=== PATIENT | female | born 1965 | race Caucasian/White ===

== ENCOUNTER 2019-12-11 20:12 | Emergency (ER) | payer OTHER ==
[~2019-12-11] VITALS: Ht 144.8 cm; Wt 55.8 kg
[2019-12-11 20:19] VITALS: Ht 144.8 cm; Wt 55.8 kg
[2019-12-11 22:04] VITALS: BP 150/60
== END 2019-12-11 22:05 | disposition home or self-care (01) ==
LOC: ED 20:12
DX: S90.111A Contusion of right great toe without damage to nail, initial encounter (principal); J45.909 Unspecified asthma, uncomplicated; B00.9 Herpesviral infection, unspecified; W22.8XXA Striking against or struck by other objects, initial encounter; Y93.89 Activity, other specified; Y92.89 Other specified places as the place of occurrence of the external cause; Y99.8 Other external cause status
CPT/HCPCS: Q0092